=== PATIENT | male | born 1985 | race Asian ===

== ENCOUNTER 2021-03-04 23:51 | Emergency (ER) | payer OTHER ==
[~2021-03-04] VITALS: Ht 180.3 cm; Wt 74.8 kg
[2021-03-05 00:04] VITALS: BP_SYST 144
== END 2021-03-05 02:30 | disposition left against medical advice (07) ==
LOC: SED 23:51
DX: M54.9 Dorsalgia, unspecified (principal); Z53.21 Procedure and treatment not carried out due to patient leaving prior to being seen by health care provider